=== PATIENT | female | born 1960 | race American Indian/Alaskan Native ===

== ENCOUNTER 2017-04-08 13:34 | Emergency (ER) | payer MEDICARE ==
[2017-04-08 14:30] VITALS: BP 150/91
[2017-04-08] MEDS ORDERED: BSS 1 DROPS, TETRACAINE 0.5% 1 DROPS, FUL-GLO 1 MG OS ONE (15:01)
--- NOTE | 2017-04-08 15:05 | Emergency Department Report ---
ED Eye Problem HPI - General Chief complaint: Eye Problems Stated complaint: LEFT EYE PAIN Time Seen by Provider: 04/08/17 15:00 Source: patient Mode of arrival: Ambulatory Limitations: No Limitations - History of Present Illness Initial comments: Patient reports left eye with redness, drainage and swelling that started this am upon awakening chief complaint: eye pain (left), eye redness (left), other (left eye drainage) Onset/Timin -: hour(s) Onset Description: sudden Location: left eye Place: home If Injury: none Eye Symptoms: redness, pain, itching, discharge Severity: severe Severity scale (0 -10): 9 If Pain, Quality: burning Consistency: constant Context: other (recent false eyelashes ) Associated Symptoms: none Treatments Prior to Arrival: none - Related Data Patient Tetanus UTD: No Previous Rx's Medication Instructions Recorded Last Taken Type HYDROcodone/APAP 5-325 [[place] 1 each PO Q6HR PRN #10 tablet 03/27/14 Unknown Rx 5/325] Metaxalone [Skelaxin] 800 mg PO TID PRN #15 tablet 02/16/16 Unknown Rx Sulfamethoxazole/Trimethoprim 1 each PO BID #20 tablet 02/16/16 Unknown Rx [Bactrim DS TAB] traMADol [Ultram 50 MG tab] 50 mg PO Q6HR PRN #20 tablet 02/16/16 Unknown Rx Tobramycin 0.3% [Tobrex] 1 drop OS Q8HR #1 bottle 04/08/17 Unknown Rx traMADol [Ultram 50 MG tab] 50 mg PO Q6HR PRN #10 tablet 04/08/17 Unknown Rx Allergies Allergy/AdvReac Type Severity Reaction Status Date / Time No Known Allergies Allergy Verified 02/16/16 12:49 ED Review of Systems ROS: Stated complaint: LEFT EYE PAIN Other details as noted in HPI Constitutional: denies: chills, diaphoresis, fever, malaise, weakness Eyes: eye pain (left ), eye discharge (left) ENT: denies: ear pain, throat pain, dental pain, hearing loss, epistaxis, congestion Respiratory: denies: cough, orthopnea, shortness of breath, SOB with exertion, SOB at rest, stridor, wheezing Cardiovascular: denies: chest pain, palpitations, dyspnea on exertion, orthopnea , edema, syncope, paroxysmal nocturnal dyspnea Skin: denies: rash, lesions, change in color, change in hair/nails, pruritus ED Past Medical Hx - Past Medical History Previous Medical History?: Yes Hx Hypertension: Yes Hx CVA: Yes (left sided weakness) Hx Diabetes: Yes Additional medical history: MURMUR - Surgical History Past Surgical History?: Yes Additional Surgical History: fibroid surgery. c section x 4 - Social History Smoking Status: Current Every Day Smoker Substance Use Type: None - Medications Home Medications: Home Medications Medication Instructions Recorded Confirmed Last Taken Type HYDROcodone/APAP 5-325 [[place] 1 each PO Q6HR PRN #10 tablet 03/27/14 Unknown Rx 5/325] Metaxalone [Skelaxin] 800 mg PO TID PRN #15 tablet 02/16/16 Unknown Rx Sulfamethoxazole/Trimethoprim 1 each PO BID #20 tablet 02/16/16 Unknown Rx [Bactrim DS TAB] traMADol [Ultram 50 MG tab] 50 mg PO Q6HR PRN #20 tablet 02/16/16 Unknown Rx Tobramycin 0.3% [Tobrex] 1 drop OS Q8HR #1 bottle 04/08/17 Unknown Rx traMADol [Ultram 50 MG tab] 50 mg PO Q6HR PRN #10 tablet 04/08/17 Unknown Rx ED Physical Exam - General Limitations: No Limitations General appearance: alert, in no apparent distress - Head Head exam: Present: atraumatic, normocephalic, normal inspection - Eye Eye exam: Present: EOMI, conjunctival injection (left) Pupils: Present: normal accommodation - Expanded Eye Exam Expanded Eyelids: Normal Inspection: Right Pupils: Regular, Round: Bilateral, Reactive: Bilateral Sclera/Conjunctival: Normal Inspection: Right, Injection: Left Anterior chamber: Normal Inspection: Bilateral Visual acuity (R) = 20/: 30 Visual acuity (L) = 20/: 40 With correction: No - ENT ENT exam: Present: normal exam, normal orophraynx, mucous membranes moist, TM's normal bilaterally, normal external ear exam. Absent: mucous membranes dry - Neck Neck exam: Present: normal inspection, full ROM. Absent: tenderness, meningismus, lymphadenopathy, thyromegaly - Respiratory Respiratory exam: Present: normal lung sounds bilaterally. Absent: respiratory distress, wheezes, rales, rhonchi, stridor, chest wall tenderness, accessory muscle use, decreased breath sounds, prolonged expiratory - Cardiovascular Cardiovascular Exam: Present: regular rate, normal rhythm, normal heart sounds. Absent: bradycardia, tachycardia, irregular rhythm, systolic murmur, diastolic murmur, rubs, gallop, clicks, JVD, S3, S4 - Neurological Exam Neurological exam: Present: alert, oriented X3, CN II-XII intact, normal gait, reflexes normal. Absent: motor sensory deficit - Skin Skin exam: Present: warm, dry, intact, normal color. Absent: rash ED Course Vital Signs 04/08/17 14:25 Temperature 97.9 F Pulse Rate 67 Respiratory 16 Rate Blood Pressure 150/91 O2 Sat by Pulse 100 Oximetry - Reevaluation(s) Reevaluation #1: 04/08/17 15:04 eye kit ordered - Eye Procedure Alcaine Drops Administered: Yes Progress: Patient tolerated procedure well ED Medical Decision Making - Lab Data Vital Signs 04/08/17 14:25 Temperature 97.9 F Pulse Rate 67 Respiratory 16 Rate Blood Pressure 150/91 O2 Sat by Pulse 100 Oximetry - Medical Decision Making During the course of ED, all other systems were unremarkable except for documentation in HPI. Patient was sent home with prescriptions for Tramadol and Tobramycin eye gtts, instructed to follow up with the selective referral given at discharge, she verbalized understanding - Differential Diagnosis Left Conjunctivitis, Left Corneal Abrasion Critical care attestation.: If time is entered above; I have spent that time in minutes in the direct care of this critically ill patient, excluding procedure time. ED Disposition Clinical Impression: Conjunctivitis Qualifiers: Conjunctivitis type: unspecified Laterality: left Qualified Code(s): H10.9 - Unspecified conjunctivitis Disposition: DC-01 TO HOME OR SELFCARE Is pt being admited?: No Does the pt Need Aspirin: No Condition: Stable Instructions: Conjunctivitis (ED) Additional Instructions: Take medication as directed. Follow up with the selected referral given at discharge Prescriptions: Tobramycin 0.3% [Tobrex] 1 drop OS Q8HR #1 bottle traMADol [Ultram 50 MG tab] 50 mg PO Q6HR PRN #10 tablet PRN Reason: Pain Referrals: SAUMYA SMART MD [Staff Physician] - 3-5 Days NITA BALDWIN MD [Staff Physician] - 3-5 Days
[2017-04-08] MEDS ORDERED: BSS ONE (15:14)
[2017-04-08] MEDS ORDERED: FUL-GLO OP ONE (15:14)
[2017-04-08] MEDS ORDERED: TETRACAINE 0.5% ONE (15:14)
== END 2017-04-08 16:08 | disposition home or self-care (01) ==
LOC: ED 13:34
DX: H10.9 Unspecified conjunctivitis (principal); I10 Essential (primary) hypertension; E11.9 Type 2 diabetes mellitus without complications; F17.210 Nicotine dependence, cigarettes, uncomplicated; Z86.73 Personal history of transient ischemic attack (TIA), and cerebral infarction without residual deficits
CPT/HCPCS: 99283

== ENCOUNTER 2017-05-21 11:52 | Emergency (ER) | payer MEDICARE ==
[2017-05-21 12:41] VITALS: BP 159/83
[2017-05-21 13:11] LABS: Basophils % (Auto) 0.7 % (0.0-1.8); Eosinophils % (Auto) 3.9 % (0.0-4.3); Hematocrit 39.4 % (30.3-42.9); Hemoglobin 12.5 gm/dl (10.1-14.3); Mean Corpuscular HGB Conc 32 % (30-34); Mean Corpuscular Volume 81 fl (79-97); Platelet Count 332 K/mm3 (140-440); Red Blood Count 4.88 M/mm3 (3.65-5.03); Red Cell Distribution Width 15.3 % (13.2-15.2); White Blood Count 8.8 K/mm3 (4.5-11.0)
[2017-05-21 13:23] LABS: Anion Gap 15 mmol/L; BUN/Creatinine Ratio 7; Blood Urea Nitrogen 5 mg/dL (7-17); Calcium 9.4 mg/dL (8.4-10.2); Carbon Dioxide 29 mmol/L (22-30); Chloride 99.2 mmol/L (98-107); Glucose 124 mg/dL (65-100); Potassium 4.5 mmol/L (3.6-5.0); Sodium 139 mmol/L (137-145)
[2017-05-21 13:24] LABS: Mean Corpuscular Hemoglobin 26 pg (28-32)
--- NOTE | 2017-05-21 13:29 | XRay Report ---
CHEST 2 VIEWS INDICATION: Cough. COMPARISON: None similar. FINDINGS: PA and lateral chest radiographs demonstrate normal cardiomediastinal silhouette. Slightly crowded bibasilar markings. Otherwise unremarkable lungs. No pleural effusions or CHF. Intact bones. CONCLUSION: No significant acute chest process, as described. Correlation with prior chest imaging would also be helpful, if available. Thank you for the opportunity to participate in this patient's care.
== END 2017-05-21 15:20 | disposition left against medical advice (07) ==
LOC: ED 11:52
DX: R06.02 Shortness of breath (principal); R09.89 Other specified symptoms and signs involving the circulatory and respiratory systems; Z53.21 Procedure and treatment not carried out due to patient leaving prior to being seen by health care provider
CPT/HCPCS: 36415; 71020; 80048; 84484; 85025; 93005; 93010

== ENCOUNTER 2018-12-12 17:20 | Emergency (ER) | payer OTHER, MEDICAID ==
[2018-12-12 17:51] VITALS: BP 120/70
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
[2018-12-12] MEDS ORDERED: IBUPROFEN PO ONE (19:55)
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
== END 2018-12-12 20:10 | disposition home or self-care (01) ==
LOC: ED 17:20
DX: S39.012A Strain of muscle, fascia and tendon of lower back, initial encounter (principal); I10 Essential (primary) hypertension; E11.9 Type 2 diabetes mellitus without complications; F17.200 Nicotine dependence, unspecified, uncomplicated; V49.49XA Driver injured in collision with other motor vehicles in traffic accident, initial encounter; Y93.89 Activity, other specified; Y92.89 Other specified places as the place of occurrence of the external cause; Y99.8 Other external cause status
CPT/HCPCS: 72100

== ENCOUNTER 2019-02-11 17:08 | Emergency (ER) | payer MEDICAID, OTHER ==
[2019-02-11 17:37] VITALS: BP 139/71
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
[2019-02-11] MEDS ORDERED: IBUPROFEN PO ONE (19:14)
[2019-02-11] MEDS ORDERED: NORCO 5/325 PO ONE (19:14)
[2019-02-11] MEDS ORDERED: ZOFRAN ODT PO ONE (19:14)
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
== END 2019-02-11 20:50 | disposition home or self-care (01) ==
LOC: ED 17:08
DX: M62.830 Muscle spasm of back (principal); M54.2 Cervicalgia; M54.6 Pain in thoracic spine; E11.9 Type 2 diabetes mellitus without complications; F17.200 Nicotine dependence, unspecified, uncomplicated; Z79.899 Other long term (current) drug therapy; Z79.1 Long term (current) use of non-steroidal anti-inflammatories (NSAID); Z86.73 Personal history of transient ischemic attack (TIA), and cerebral infarction without residual deficits; V89.2XXA Person injured in unspecified motor-vehicle accident, traffic, initial encounter; Y93.89 Activity, other specified; Y92.488 Other paved roadways as the place of occurrence of the external cause; Y99.8 Other external cause status
CPT/HCPCS: 72040; 72070; 99283; Q0162

== ENCOUNTER 2020-06-23 16:55 | Emergency (ER) | payer SELFPAY | END 2020-06-23 20:00 | disposition left against medical advice (07) | LOC: ED 16:55 | DX: M79.10 Myalgia, unspecified site (principal); Z53.21 Procedure and treatment not carried out due to patient leaving prior to being seen by health care provider; V49.69XA Unspecified car occupant injured in collision with other motor vehicles in traffic accident, initial encounter; Y93.89 Activity, other specified; Y92.488 Other paved roadways as the place of occurrence of the external cause; Y99.8 Other external cause status ==

== ENCOUNTER 2020-11-12 13:42 | Emergency (ER) | payer SELFPAY ==
[2020-11-12 14:11] VITALS: BP 122/77
--- NOTE | 2020-11-12 15:28 | Emergency Department Report ---
ED General Adult HPI - General Chief complaint: Extremity Injury, Lower Stated complaint: FELL INJURED RT LEG Source: patient Mode of arrival: Ambulatory Limitations: No Limitations - History of Present Illness Initial comments: 52-year-old female patient presents to the emergency department with complaints of traumatic right knee pain starting yesterday. Patient states she was walking when she accidentally fell down 5 steps. There was no resulting head injury or loss of consciousness. Patient has been ambulatory since the fall. No history of prior right knee injuries. Denies hip pain, lower leg pain, ankle pain, foot pain, paresthesias, skin color changes. Denies all other complaints at this time. - Related Data Previous Rx's Medication Instructions Recorded Last Taken Type HYDROcodone/APAP 5-325 [[place] 1 each PO Q6HR PRN #10 tablet 03/27/14 Unknown Rx 5/325] Sulfamethoxazole/Trimethoprim 1 each PO BID #20 tablet 02/16/16 Unknown Rx [Bactrim DS TAB] traMADoL [Ultram 50 MG tab] 50 mg PO Q6HR PRN #20 tablet 02/16/16 Unknown Rx Tobramycin 0.3% [Tobrex] 1 drop OS Q8HR #1 bottle 04/08/17 Unknown Rx traMADoL [Ultram 50 MG tab] 50 mg PO Q6HR PRN #10 tablet 04/08/17 Unknown Rx Acetaminophen/Codeine [Tylenol 1 tab PO Q6H PRN #12 tab 03/20/18 Unknown Rx /Codeine # 3 tab] Cyclobenzaprine [Flexeril] 10 mg PO QHS PRN #10 tablet 03/20/18 Unknown Rx Ibuprofen [Motrin] 600 mg PO Q8H PRN #30 tablet 03/20/18 Unknown Rx Diclofenac Sodium [Voltaren] 100 gm TP Q6H #1 gel..gram. 06/18/18 Unknown Rx traMADoL [Ultram 50 MG tab] 50 mg PO Q6HR PRN #13 tablet 06/18/18 Unknown Rx Cyclobenzaprine [Flexeril] 10 mg PO QHS PRN #10 tablet 12/12/18 Unknown Rx Ibuprofen [Motrin] 600 mg PO Q8H PRN #20 tablet 12/12/18 Unknown Rx Metaxalone [Skelaxin] 800 mg PO TID PRN #20 tablet 02/11/19 Unknown Rx Naproxen [Naprosyn] 500 mg PO Q12H PRN #20 tablet 02/11/19 Unknown Rx traMADoL [Ultram] 50 mg PO Q6HR PRN #15 tablet 02/11/19 Unknown Rx Naproxen [Naprosyn] 500 mg PO BID #20 tablet 11/12/20 Unknown Rx Allergies Allergy/AdvReac Type Severity Reaction Status Date / Time No Known Allergies Allergy Verified 12/12/18 17:23 ED Review of Systems ROS: Stated complaint: FELL INJURED RT LEG Other details as noted in HPI Other: CARDIOVASCULAR: Negative for chest pain. PULMONARY: Negative for dyspnea. GASTROINTESTINAL: Negative for abdominal pain. MUSCULOSKELETAL: Positive for right knee pain. NEUROLOGICAL: Negative for headache. INTEGUMENTARY: Negative for ecchymosis. ED Past Medical Hx - Past Medical History Previous Medical History?: Yes Hx Hypertension: Yes Hx CVA: Yes (left sided weakness) Hx Diabetes: Yes Additional medical history: MURMUR - Surgical History Past Surgical History?: Yes Additional Surgical History: fibroid surgery. c section x 4 - Social History Smoking Status: Current Every Day Smoker Substance Use Type: None - Medications Home Medications: Home Medications Medication Instructions Recorded Confirmed Last Taken Type HYDROcodone/APAP 5-325 [[place] 1 each PO Q6HR PRN #10 tablet 03/27/14 Unknown Rx 5/325] Sulfamethoxazole/Trimethoprim 1 each PO BID #20 tablet 02/16/16 Unknown Rx [Bactrim DS TAB] traMADoL [Ultram 50 MG tab] 50 mg PO Q6HR PRN #20 tablet 02/16/16 Unknown Rx Tobramycin 0.3% [Tobrex] 1 drop OS Q8HR #1 bottle 04/08/17 Unknown Rx traMADoL [Ultram 50 MG tab] 50 mg PO Q6HR PRN #10 tablet 04/08/17 Unknown Rx Acetaminophen/Codeine [Tylenol 1 tab PO Q6H PRN #12 tab 03/20/18 Unknown Rx /Codeine # 3 tab] Cyclobenzaprine [Flexeril] 10 mg PO QHS PRN #10 tablet 03/20/18 Unknown Rx Ibuprofen [Motrin] 600 mg PO Q8H PRN #30 tablet 03/20/18 Unknown Rx Diclofenac Sodium [Voltaren] 100 gm TP Q6H #1 gel..gram. 06/18/18 Unknown Rx traMADoL [Ultram 50 MG tab] 50 mg PO Q6HR PRN #13 tablet 06/18/18 Unknown Rx Cyclobenzaprine [Flexeril] 10 mg PO QHS PRN #10 tablet 12/12/18 Unknown Rx Ibuprofen [Motrin] 600 mg PO Q8H PRN #20 tablet 12/12/18 Unknown Rx Metaxalone [Skelaxin] 800 mg PO TID PRN #20 tablet 02/11/19 Unknown Rx Naproxen [Naprosyn] 500 mg PO Q12H PRN #20 tablet 02/11/19 Unknown Rx traMADoL [Ultram] 50 mg PO Q6HR PRN #15 tablet 02/11/19 Unknown Rx Naproxen [Naprosyn] 500 mg PO BID #20 tablet 11/12/20 Unknown Rx ED Physical Exam - General Limitations: No Limitations - Other Other exam information: General: Awake and alert. Neck: Supple. Full range of motion intact. Cardiovascular: Normal peripheral perfusion. Pulmonary: No respiratory distress. Patient is speaking normally without use of accessory muscles. Skin: No apparent rashes or lesions. Neurological: No facial asymmetry. Speech is clear. Follows commands. Patient is alert and oriented. Musculoskeletal: Tenderness to palpation along the right knee without obvious dislocation, deformity, or discoloration. Anterior drawer sign is negative. Valgus and varus stress test negative. No crepitus. Ambulatory without assistance. ED Course Vital Signs 11/12/20 14:08 Temperature 98.0 F Pulse Rate 61 Respiratory 16 Rate Blood Pressure 122/77 O2 Sat by Pulse 100 Oximetry ED Medical Decision Making - Radiology Data [facility] [address] [place] [address] XRay Report Signed Patient: TUNDE MIRANDA R#: [id number] : 1960 Acct:[id number] Age/Sex: 60 / F ADM Date: 11/12/20 Loc: ED Attending Dr: Ordering Physician: SHO DALEY Date of Service: 11/12/20 Procedure(s): XR knee 3V RT Accession Number(s): [id number] cc: SHO DALEY Fluoro Time In Minutes: RIGHT KNEE 4 VIEW(S) INDICATION / CLINICAL INFORMATION: fall COMPARISON: None available. FINDINGS: BONES / JOINT(S): No acute fracture or subluxation. Moderate tricompartmental degenerative arthrosis right knee worse within the medial tibial compartment. Incidental bipartite patella SOFT TISSUES: No significant abnormality. ADDITIONAL FINDINGS: None. Signer Name: Manpreet Hanna MD Signed: 11/12/2020 5:59 PM Workstation Name: [id number] Transcribed By: TL Dictated By: Manpreet Hanna MD Electronically Authenticated By: Manpreet Hanna MD Signed Date/Time: 11/12/201758 DD/ 57 TD/TT: Print - Medical Decision Making Differential diagnosis including but not limited to: sprain, strain, fracture, contusion, dislocation Patient presents to the emergency department with complaints of traumatic right knee pain. She is ambulatory without assistance and neurovascularly intact. She was initially seen by provider at 15:25. This 60-year-old patient demanded a test. It was politely explained to the patient that in the absence of symptoms suggestive of a related complication, particularly given the patient's age, a test is not clinically indicated for evaluation of traumatic knee pain. Patient stated she would refuse the x-ray without a test. Patient advised that the abdomen may be shielded at her request while the x-ray is obtained. She was advised to purchase an [id number] test on an outpatient basis if her concerns persist. On her evaluation, patient remains stable. X-ray shows evidence of osteoarthritis without acute injury. Patient was informed of these findings and referred to orthopedics for definitive management. Patient requested Ashish wrap and a referral to [facility]. Strict return precautions provided. Delay in patient disposition secondary to patient refusing imaging until an examination room became available. Critical care attestation.: If time is entered above; I have spent that time in minutes in the direct care of this critically ill patient, excluding procedure time. ED Disposition Clinical Impression: Arthritis of right knee Disposition: DC-01 TO HOME OR SELFCARE Is pt being admited?: No Does the pt Need Aspirin: No Condition: Stable Instructions: Osteoarthritis Additional Instructions: Take Tylenol every 4 hours as needed for pain. Take Naprosyn twice daily with food as needed for pain. Wear Ashish wrap as needed. Apply ice to affected area as needed. Follow-up with Dr. Clifford, orthopedics, within 1 week. Call Sunday to schedule an appointment. Establish care with Dr. Adair, [facility], as needed. Return to the emergency department immediately for new or worsening symptoms. Prescriptions: Naproxen [Naprosyn] 500 mg PO BID #20 tablet Referrals: PRIMARY CARE, [Primary Care Provider] - 3-5 Days BUSTER CLIFFORD MD [Staff Physician] - 3-5 Days SUMEET ADAIR MD [Staff Physician] - 3-5 Days Time of Disposition: 18:22
--- NOTE | 2020-11-12 18:04 | XRay Report ---
RIGHT KNEE 4 VIEW(S) INDICATION / CLINICAL INFORMATION: fall COMPARISON: None available. FINDINGS: BONES / JOINT(S): No acute fracture or subluxation. Moderate tricompartmental degenerative arthrosis right knee worse within the medial tibial compartment. Incidental bipartite patella SOFT TISSUES: No significant abnormality. ADDITIONAL FINDINGS: None. Signer Name: Manpreet Hanna MD Signed: 11/12/2020 5:59 PM Workstation Name: [id number]
== END 2020-11-12 19:03 | disposition home or self-care (01) ==
LOC: ED 13:42
DX: M17.11 Unilateral primary osteoarthritis, right knee (principal); I10 Essential (primary) hypertension; E11.9 Type 2 diabetes mellitus without complications; F17.200 Nicotine dependence, unspecified, uncomplicated; Z98.890 Other specified postprocedural states; Z86.73 Personal history of transient ischemic attack (TIA), and cerebral infarction without residual deficits; Z79.899 Other long term (current) drug therapy; W10.9XXA Fall (on) (from) unspecified stairs and steps, initial encounter; Y93.89 Activity, other specified; Y92.89 Other specified places as the place of occurrence of the external cause; Y99.8 Other external cause status

== ENCOUNTER 2021-02-23 13:20 | Emergency (ER) | payer MEDICAID ==
[2021-02-23 14:04] VITALS: BP 125/50
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
== END 2021-02-23 16:25 | disposition home or self-care (01) ==
LOC: ED 13:20
DX: M54.6 Pain in thoracic spine (principal); M25.521 Pain in right elbow; I10 Essential (primary) hypertension; E11.9 Type 2 diabetes mellitus without complications; F17.200 Nicotine dependence, unspecified, uncomplicated; Z98.890 Other specified postprocedural states; Z86.73 Personal history of transient ischemic attack (TIA), and cerebral infarction without residual deficits; Z79.899 Other long term (current) drug therapy; V49.49XA Driver injured in collision with other motor vehicles in traffic accident, initial encounter; W22.10XA Striking against or struck by unspecified automobile airbag, initial encounter; Y93.89 Activity, other specified; Y92.410 Unspecified street and highway as the place of occurrence of the external cause; Y99.8 Other external cause status
CPT/HCPCS: 99281